=== PATIENT | female | born 1930 | race Asian ===

== ENCOUNTER → 2016-09-11 | Outpatient (CLI) | payer MEDICARE, OTHER ==
[~2016-09-11] MED LIST: ASPI81TA82 PO; CLOP75 PO; KETAMINE HCL 500 MG/5 ML VIAL ONE; MICA40TA2 PO; NORV2.5T11 PO; SYNT100T PO; ZOFR4TAB3 PO
[2016-09-11 10:13] LABS: ALKALINE PHOSPHATASE 74 U/L (45-117); ALT (GPT) 12 U/L (10-53); ANION GAP 9 MEQ/L (5-15); BICARBONATE 24.7 MEQ/L (21.0-32.0); BLOOD UREA NITROGEN 16 MG/DL (7-18); CHLORIDE 106 MEQ/L (98-107); FREE T3 2.51 PG/ML (2.18-3.98); GLOMERULAR FILTRATION RATE 56 ML/MIN (>89); GLUCOSE,FASTING 90 MG/DL (74-99); HDL CHOLESTEROL 68.4 MG/DL (40.0-60.0); LDL CHOLESTEROL 184 MG/DL (0-99); SODIUM (NA) 140 MEQ/L (136-145); TOTAL BILIRUBIN ADULT 0.4 MG/DL (0.2-1.0)
[2016-09-11 10:15] LABS: AST (GOT) 26 U/L (15-37); POTASSIUM 5.1 MEQ/L (3.5-5.1)
== END ==
LOC: PLAB 06:55
PROVIDERS: ATTEND Internal Medicine
DX: I25.10 Atherosclerotic heart disease of native coronary artery without angina pectoris (principal); I10 Essential (primary) hypertension; E78.5 Hyperlipidemia, unspecified; E03.9 Hypothyroidism, unspecified
CPT/HCPCS: 36415; 80053; 80061; 84439; 84443; 84481

== ENCOUNTER → 2017-01-08 | Outpatient (CLI) | payer MEDICARE, OTHER ==
[~2017-01-08] MED LIST changes: +ALTEPLASE RECOMBINANT 2 MG VIAL ONE; -KETAMINE HCL 500 MG/5 ML VIAL ONE
[2017-01-08 08:56] LABS: AUTOMATED NEUTROPHIL # 2.2 TH/MM3 (1.8-7.7); BASOPHIL # 0.1 TH/MM3 (0-0.2); BASOPHIL % 1.9 % (0.0-2.0); EOSINOPHIL # 0.2 TH/MM3 (0-0.4); HEMATOCRIT 36.7 % (35.0-46.0); HEMO FLAGS DIFF FINAL; LYMPH % 35.4 % (9.0-44.0); LYMPHOCYTE # 1.5 TH/MM3 (1.0-4.8); MEAN CELL VOLUME 92.7 FL (80.0-100.0); MEAN CORPUSCULAR HEMOGLOBIN 30.1 PG (27.0-34.0); MEAN CORPUSCULAR HGB CONC 32.5 % (32.0-36.0); MONO % 7.4 % (0.0-8.0); NEUT % 51.3 % (16.0-70.0); PLATELET COUNT 195 TH/MM3 (150-450); RED BLOOD COUNT 3.96 MIL/MM3 (4.00-5.30); RED CELL DISTRIBUTION WIDTH 14.9 % (11.6-17.2); WHITE BLOOD COUNT 4.2 TH/MM3 (4.0-11.0)
[2017-01-08 09:41] LABS: ALKALINE PHOSPHATASE 73 U/L (45-117); ALT (GPT) 13 U/L (10-53); ANION GAP 7 MEQ/L (5-15); AST (GOT) 24 U/L (15-37); BICARBONATE 28.1 MEQ/L (21.0-32.0); BLOOD UREA NITROGEN 17 MG/DL (7-18); CHLORIDE 107 MEQ/L (98-107); GLOMERULAR FILTRATION RATE 58 ML/MIN (>89); GLUCOSE,FASTING 81 MG/DL (74-99); HDL CHOLESTEROL 72.4 MG/DL (40.0-60.0); LDL CHOLESTEROL 189 MG/DL (0-99); POTASSIUM 3.9 MEQ/L (3.5-5.1); SODIUM (NA) 142 MEQ/L (136-145); TOTAL BILIRUBIN ADULT 0.3 MG/DL (0.2-1.0)
== END ==
LOC: PLAB 06:40
PROVIDERS: ATTEND Internal Medicine Nephrology
DX: N39.0 Urinary tract infection, site not specified (principal); E78.9 Disorder of lipoprotein metabolism, unspecified; N18.2 Chronic kidney disease, stage 2 (mild)
CPT/HCPCS: 36415; 80053; 80061; 84443; 85025; J2997

== ENCOUNTER → 2017-02-05 | Outpatient (CLI) | payer MEDICARE, OTHER ==
[~2017-02-05] MED LIST changes: -ALTEPLASE RECOMBINANT 2 MG VIAL ONE
[2017-02-05 09:49] LABS: ANION GAP 8 MEQ/L (5-15); BICARBONATE 25.7 MEQ/L (21.0-32.0); CHLORIDE 108 MEQ/L (98-107); GLUCOSE,FASTING 83 MG/DL (74-99); POTASSIUM 4.4 MEQ/L (3.5-5.1); SODIUM (NA) 142 MEQ/L (136-145)
[2017-02-05 09:54] LABS: ALKALINE PHOSPHATASE 74 U/L (45-117); ALT (GPT) 11 U/L (10-53); BLOOD UREA NITROGEN 14 MG/DL (7-18); FREE T4 0.99 NG/DL (0.76-1.46); GLOMERULAR FILTRATION RATE 59 ML/MIN (>89); TOTAL BILIRUBIN ADULT 0.4 MG/DL (0.2-1.0)
[2017-02-05 10:06] LABS: AST (GOT) 18 U/L (15-37); FREE T3 2.17 PG/ML (2.18-3.98); LDL CHOLESTEROL 169 MG/DL (0-99)
== END ==
LOC: PLAB 07:02
PROVIDERS: ATTEND Internal Medicine
DX: I10 Essential (primary) hypertension (principal); E78.5 Hyperlipidemia, unspecified; E03.9 Hypothyroidism, unspecified
CPT/HCPCS: 36415; 80053; 80061; 84439; 84443; 84481

== ENCOUNTER 2017-03-11 10:53 | Day surgery (SDC) | payer MEDICARE, OTHER ==
[2017-03-11 11:15] VITALS: BP 153/74; PULSE 56; RESP 16; TEMP 97.5; O2SAT 97
[2017-03-11] MEDS ORDERED: AMLO5 PO (11:15)
[2017-03-11] MEDS ORDERED: TELM40 PO (11:15)
[2017-03-11] MEDS ORDERED: ASPI-147 PO (11:15)
[2017-03-11] MEDS ORDERED: LEVO.1 PO (11:15)
[2017-03-11] MEDS ORDERED: PLAV75TA29 PO (11:15)
--- NOTE | 2017-03-11 12:53 | PD.RAD ---
Radiology Post PICC Prog Note Pre Procedure Diagnosis: (1) Chest pain Post Procedure Diagnosis: (1) Chest pain Procedure: Right PICC line placement Procedure Date: Mar 11, 2017 Supervising Radiologist Winston Chou Proceduralist/Assist: Radha Contreras RT(R)() Device Side: Right N[place]uan: 4 single lumen cm: 39 Catheter: Power PICC Plan of Activity Patient to Unit: Nursing Unit Patient Condition: Good PICC line can be used immediately Winston Chou MD Mar 11, 2017 12:52
[2017-03-11] MEDS ORDERED: SODIUM CHLORIDE 0.9% FLUSH 10 ML FLUSH IVF PRN ×2 (13:00)
--- NOTE | 2017-03-11 13:53 | RADRPT ---
EXAM DATE/TIME: 03/11/2017 12:22 [place] COMPARISON: No previous studies available for comparison. INDICATIONS : Patient presents with chest pain in need of intravenous line placement for nuclear stress test. MEDICAL HISTORY : Since 1984 two heart attacks HTN NM x4 COPD Hypothyroidism SURGICAL HISTORY : Bilat cataracts sx Bilat shoulder sx ENCOUNTER: Initial ACUITY: > 1 year PAIN SCORE: 0/10 LOCATION: n/a FLUORO TIME: 1.31 minutes IMAGE SERIES: 0 ACCESS: Right brachial vein DEVICE(S): 1.) 4 Nauruan single lumen 39 cm X[employer]a Power PICC PROCEDURE : 1. Ultrasound guidance for venous catheterization. 2. Fluoroscopic guidance. 3. Ultrasound & fluoroscopic guided central venous Power PICC line placement. The risks, benefits and alternatives to the procedure were explained and verbal and written consent w as obtained. The site was prepped in sterile fashion. Full sterile technique was used, including ca p, mask, sterile gloves and gown and a large sterile sheet. Hand hygiene and 2% chlorhexidine prep w as utilized per protocol for cutaneous antisepsis with appropriate dry time for site. The skin and s ubcutaneous tissues were infiltrated with local anesthetic solution. Under direct ultrasound guidance, a suitable vein was accessed and a measuring guidewire was introduc ed and positioned in the central venous system. The ultrasound images depicting access guidance were saved and stored to PACS for permanent record. A Power Injectable PICC line was cut to prescribed length and introduced, positioned with tip at the cavoatrial junction level. The line was flushed and secured per protocol. CONCLUSION: 1. Uncomplicated central venous Power PICC line placement. 2. The PICC line can be used immediately. Winston Chou MD on March 11, 2017 at 13:51 Board Certified Radiologist. This report was verified electronically.
[2017-03-12] MEDS ORDERED: SODIUM CHLORIDE 0.9% FLUSH 10 ML FLUSH IVF SCH (09:00)
== END 2017-03-11 12:30 | disposition home or self-care (01) ==
LOC: HROP 10:53 → HRIP 10:56 → HROP 12:30
PROVIDERS: ATTEND Internal Medicine Interventional Cardiology
DX: R07.9 Chest pain, unspecified (principal); R31.9 Hematuria, unspecified; I10 Essential (primary) hypertension; I25.2 Old myocardial infarction; E03.9 Hypothyroidism, unspecified; K21.9 Gastro-esophageal reflux disease without esophagitis; Z86.73 Personal history of transient ischemic attack (TIA), and cerebral infarction without residual deficits; Z95.1 Presence of aortocoronary bypass graft
CPT/HCPCS: 36569; 76937; 77001; C1751; J1642

== ENCOUNTER → 2017-11-11 | Outpatient (CLI) | payer MEDICARE, OTHER ==
[~2017-11-11] MED LIST changes: +AMLO5 PO; +ASPI-147 PO; -ASPI81TA82 PO; -CLOP75 PO; +LEVO.1 PO; -MICA40TA2 PO; -NORV2.5T11 PO; +PLAV75TA29 PO; -SYNT100T PO; +TELM40 PO; -ZOFR4TAB3 PO
[2017-11-11 10:22] LABS: HEMATOCRIT 32.5 % (35.0-46.0); MEAN CELL VOLUME 93.5 FL (80.0-100.0); MEAN CORPUSCULAR HEMOGLOBIN 31.6 PG (27.0-34.0); MEAN CORPUSCULAR HGB CONC 33.9 % (32.0-36.0); MEAN PLATELET VOLUME 7.4 FL (7.0-11.0); PLATELET COUNT 338 TH/MM3 (150-450); RED BLOOD COUNT 3.48 MIL/MM3 (4.00-5.30); RED CELL DISTRIBUTION WIDTH 14.7 % (11.6-17.2); WHITE BLOOD COUNT 5.4 TH/MM3 (4.0-11.0)
[2017-11-11 10:25] LABS: BICARBONATE 27.5 MEQ/L (21.0-32.0); CREATININE 0.93 MG/DL (0.50-1.00)
[2017-11-11 10:36] LABS: CHOLESTEROL/ HDL RATIO 3.85 RATIO; HDL CHOLESTEROL 53.7 MG/DL (40.0-60.0)
== END ==
LOC: PLAB 07:17
PROVIDERS: ATTEND Internal Medicine Interventional Cardiology
DX: I11.9 Hypertensive heart disease without heart failure (principal); E78.00 Pure hypercholesterolemia, unspecified; R06.02 Shortness of breath; R53.83 Other fatigue
CPT/HCPCS: 36415; 80048; 80061; 84443; 84450; 84460; 85027